=== PATIENT | female | born 2000 | race Two or more races ===

== ENCOUNTER 2023-08-26 10:57 | Emergency (ER) | payer MEDICAID, OTHER ==
[~2023-08-26] VITALS: Ht 152.4 cm; Wt 96.4 kg
[2023-08-26 11:43] VITALS: BP 146/72; PULSE 94; RESP 16; TEMP 98.2; O2SAT 98
[2023-08-26] MEDS: diphenhdrAMINE HCL 50 MG/1 ML VL IV ONE (12:54)
[2023-08-26] MEDS: PROCHLORPERAZINE EDISYLATE 5 MG/ML 2ML VIAL IV ONE (12:54)
[2023-08-26] MEDS: SODIUM CHLORIDE 0.9% 1,000 ML IV ONE (12:54)
[2023-08-26] MEDS: KETOROLAC TROMETH 30 MG/ML 1ML VIAL IV ONE (12:54)
[2023-08-26 13:26] LABS: Rapid Strep A Screen-Throat Negative
[2023-08-26] MEDS ORDERED: SUMA100T15 PO (13:37)
== END 2023-08-26 13:47 | disposition home or self-care (01) ==
LOC: ER 10:57
DX: G43.909 Migraine, unspecified, not intractable, without status migrainosus (principal)
CPT/HCPCS: 87070; 87880; 96361; 96374; 96375; 99284; J0780; J1200; J1885; J7030

== ENCOUNTER 2024-12-02 11:08 | Emergency (ER) | payer MEDICAID ==
[~2024-12-02] VITALS: Ht 149.9 cm; Wt 96.2 kg
[~2024-12-02 11:08] MED LIST: SUMA100T15 PO
--- NOTE | 2024-12-02 11:49 | ED.PDOC ---
History of Present Illness HPI Comments 24-year-old morbidly obese female presents with chief complaint of chest pain. Patient endorses on sounding, unprovoked, atraumatic onset of pain, last night, which has been persisting ever since. She states on consulting a nurse phone hotline is a advised to come to the ED. Only history of anxiety and recent left knee injury. No endorsement of any recent strenuous activities, stressors, injuries, sick contact, substance use, or further pertinent events. Denies having any shortness of breath, cough, congestion, nausea, vomiting, or further associated symptoms. Chief Complaint: Chest Pain Time Seen by MD: 11:30 Reviewed Notes: Nurses Notes, Medications, Allergies Allergies: Coded Allergies: NO KNOWN ALLERGIES (Unverified , 08/26/23) Home Meds Active Scripts Sumatriptan Succinate (Sumatriptan Succinate) 100 Mg Tab, 1 TAB PO UD, #9 TAB 0 Refills Take 1 dose at the time of migraine symptoms. May repeat dose after 2 hours. Do not take more than 2 tablets in 24 hours. Prov:CHELA RUTH NP 08/26/23 Information Source: Patient Mode of Arrival: Ambulatory Severity: Moderate Timing: Hours Duration: Since onset Prehospital treatment: None Past Medical History PAST MEDICAL HISTORY: Anxiety Past Medical History (Other): Morbid obesity Surgical History (Other): Left knee injury-torn meniscus Family History Family History: Reviewed,noncontributory to illness Social History Smoker: Non-Smoker Alcohol: Denies ETOH Use Drugs: Denies Drug Use Lives In: Home All Other Systems: Reviewed and Negative (Comprehensive review of systems are negative unless otherwise stated in HPI) Physical Exam General Appearance: Moderate Distress HEENT: Normal ENT Inspection, Pharynx Normal, TMs Normal Neck: Full Range of Motion, Non-Tender, Normal, Normal Inspection Respiratory: Chest Non-Tender, Lungs Clear, No Accessory Muscle Use, No Respiratory Distress, Normal Breath Sounds Cardiovascular: No Edema, No JVD, No Murmur, No Gallop, Normal Peripheral Pulses, Regular Rate/Rhythm Breast Exam: Deferred Gastrointestinal: No Organomegaly, Non Tender, No Pulsatile Mass, Normal Bowel Sounds, Soft Genitalia: Deferred Pelvic: Deferred Rectal: Deferred Extremities: No calf tenderness, Normal capillary refill, Normal inspection, Normal range of motion, Non-tender, No pedal edema Musculoskeletal : Apperance: Normal Neurologic: Alert, heel scorer II-XII nml as Tested, No Motor Deficits, Normal Affect, Normal Mood, No Sensory Deficits Cerebellar Function: Normal Reflexes: Normal Skin: Dry, Normal Color, Warm Peripheral Pulses: 3+ Radial (R), 3+ Radial (L) Lymphatic: No Adenopathy Was a procedure done? Was a procedure done?: No EKG EKG #1: Pulse Rate (adult): 92 Hale: Normal Cardiac Rhythm: NSR Block: None Hypertrophy: None ST: Normal EKG #2: Pulse Rate (adult): 83 [place]: Normal Cardiac Rhythm: NSR Block: None Hypertrophy: None ST: Normal Differential Dx Considerations may include: CT, PE, ACS, URI, pneumonia, anxiety, angina, gastritis, among others X-Ray, Labs, Meds, VS Vital Signs Date Time Temp Pulse Resp B/P (MAP) Pulse Ox O2 Delivery O2 Flow Rate FiO2 12/02/24 14:20 76 98 Room Air 12/02/24 14:20 98.4 76 16 118/77 (91) 98 98.4 12/02/24 12:32 83 12/02/24 12:07 83 12/02/24 11:49 92 12/02/24 11:12 92 12/02/24 11:10 97.9 96 15 122/72 100 97.9 Lab Test 12/02/24 12:31 12/02/24 11:59 12/02/24 11:34 Range/Units Troponin I High Sensitivity < 3 L < 3 L </=34 ng/L Urine Color Light-yellow Yellow Urine Clarity Clear Clear Urine pH 6.0 5.0-9.0 Urine Specific [place] 1.012 1.001-1.035 Urine Protein Negative Negative Urine Ketones Negative Negative Urine Blood Negative Negative /uL Urine Nitrite Negative Negative Urine Bilirubin Negative Negative Urine Urobilinogen Normal Negative mg/dL Urine Leukocyte Esterase Negative Negative /uL Urine RBC 2 0 - 4 /hpf Urine Microscopic WBC 1 0-5 /HPF Urine Squamous Epithelial Cells Few <5 /hpf Urine Bacteria None seen None Seen /hpf Urine Glucose Normal Normal mg/dL D-Dimer, Quantitative 0.39 0.0-0.49 mg/L FEU Patient alert. No sign of distress. Cardiac marker within normal limits. Vitals stable. EKG reviewed does not show any acute process. D-dimer within normal limits. Saturation pristine on room air. No leg swelling. Explained to the patient. Was told to follow up with her primary care physician. Was told to come back if there is any problem. Time of 1ST Reevaluation: 12:00 Reevaluation 1ST: Improved Patient Education/Counseling: Diagnosis, Treatment, Need For Follow Up Family Education/Counseling: No Family Present SEPSIS Sepsis Screen Date sepsis recognized/suspect: Dec 02, 2024 Time Sepsis recognized/suspect: 1114 Recent Procedure: No On Antibiotic Therapy: No Respiratory Rate >20: No Heart Rate >90: No Temp<36 C (96.8 F) or >38.3 C: No SBP <90 or MAP <65 mmHG: No New Acute Mental Status Change: No Is the patient on CPAP, BIPAP,: No Physician Orders Electrocardigram (12/02/24 14:10) Vital Signs Date Time Temp Pulse Resp B/P (MAP) Pulse Ox O2 Delivery O2 Flow Rate FiO2 12/02/24 14:20 76 98 Room Air 12/02/24 14:20 98.4 76 16 118/77 (91) 98 98.4 12/02/24 12:32 83 12/02/24 12:07 83 12/02/24 11:49 92 12/02/24 11:12 92 12/02/24 11:10 97.9 96 15 122/72 100 97.9 Departure 1 Departure Time of Disposition: 15:30 Impression: Primary Impression: Musculoskeletal chest pain Additional Impression: Anxiety Disposition: 01 HOME / SELF CARE / HOMELESS Condition: Good Discharged With: Self Critical Care Note Critical Care Time?: No Stability Stability form required: No Heart Score Heart Score: Heart Score Response (Comments) Value History Slightly Suspicious 0 EKG Normal 0 Age <45 0 Risk Factors No known risk factors 0 Troponin Normal limit 0 Total 0 I personally scribed for NGOZI SALCEDO MD ([email or web address]) on 12/02/24 at 11:49. Electronically submitted by Ender Abbott ([email or web address]). I personally scribed for NGOZI SALCEDO MD ([email or web address]) on 12/02/24 at 12:32. Electronically submitted by Ender Abbott ([email or web address]). NGOZI SALCEDO MD Dec 02, 2024 11:49
--- NOTE | 2024-12-02 12:08 | ECG ---
[facility] Test Date: 2024-12-02 Test Time: 12:07:34 Pat Name: NELA BAZZI Department: ED Room: Gender: F Staff Development Nurse: corinna : 2000 Requested By: NGOZI SALCEDO Order Number: [id number] Reading MD: Kendrick Weiss Measurements Intervals [place] Rate: 83 P: 18 ME: 108 QRS: 40 QRSD: 96 T: 31 QT: 346 QTc: 407 Interpretive Statements Sinus rhythm Short [place] interval Electronically Signed On 12-02-2024 18:49:23 PDT by Kendrick Weiss Please click the below link to view image of tracing.
--- NOTE | 2024-12-02 12:18 | ECG ---
[facility] Test Date: 2024-12-02 Test Time: 11:12:51 Pat Name: NELA BAZZI Department: [facility] ED Patient ID: [id number] Room: Gender: F Casualty Claim Adjuster: AMADO : 2000 Requested By: NGOZI SALCEDO Order Number: [id number] Reading MD: Kendrick Weiss Measurements Intervals [place] Rate: 92 P: 6 [place]: 119 QRS: 10 QRSD: 93 T: 22 QT: 346 QTc: 429 Interpretive Statements Sinus rhythm Borderline short [place] interval Electronically Signed On 12-02-2024 18:49:21 PDT by Kendrick Weiss Please click the below link to view image of tracing.
[2024-12-02 14:03] LABS: Urine Protein, UAD Negative (Negative)
[2024-12-02 16:00] VITALS: BP 132/72; PULSE 76; RESP 18; TEMP 97.6; O2SAT 96
== END 2024-12-02 16:05 | disposition home or self-care (01) ==
LOC: ER 11:08
DX: R07.89 Other chest pain (principal); F41.9 Anxiety disorder, unspecified; E66.01 Morbid (severe) obesity due to excess calories
CPT/HCPCS: 36415; 81001; 84484; 85379; 93005